=== PATIENT | female | born 2000 ===

== ENCOUNTER 2024-05-02 14:30 | Outpatient (RCR) | payer OTHER, SELFPAY ==
--- NOTE | 2024-01-27 17:44 | PT.OIE ---
Current Diagnoses Pain in unspecified shoulder (01/26/24) Cervicalgia (01/26/24) Other female genital prolapse (01/26/24) Weakness (01/26/24) Visit Care Team Role Provider Type EZ Salmeron Attending Provider Non-Staff Family Provider Primary Care Provider Referring Provider Specialty: Nursing Address: [facility], [facility] [address] , [place], [address] Email: Physical Therapy Initial Evaluation PT-OP-A Visit Information Start: 01/26/24 09:49 Freq: Status: Active Protocol: Document 01/26/24 09:45 [facility] (Rec: 01/26/24 13:34 [facility] [id number]) Out-Patient Physical Therapy Visit Information Visit Information Visit Type Initial Evaluation Visit Start Time 09:45 Visit Stop Time 10:30 Visit Number 1 Evaluation Information Evaluation Date 01/26/24 PT-OP-B Current Condition Start: 01/26/24 09:49 Freq: Status: Active Protocol: Document 01/26/24 09:50 [facility] (Rec: 01/26/24 10:35 [facility] [id number]) Current Condition History of Current Condition Onset Date september 2023 Current Complaints SI, LBP,neck, shoulder pain post along with decreased core strength History of Current Condition pelvic floor PT and joint and neck pain, hip pain and hips hury and she has a diastasis. She delivered her baby vaginally on September 18 2023 She had a fast delivery and was on pitocin and she had a epidural, minor tear on the right tear on the inside wall. She feels pelvic pressure and it is hard for her to fully empty her bladder. She has always had very mobile joints and was told she might have a connective tissue disorder. She reports she is sore all the time and this has worsened since she was and after her vaginal delivery Treatment Goals Patient/Caregiver Goals Goals include being able to fully empty her bladder and improve core strength, decrease complaints of pain PT-OP-C Subjective Start: 01/26/24 09:49 Freq: Status: Active Protocol: Document 01/26/24 13:38 [facility] (Rec: 01/26/24 13:40 [facility] [id number]) OP-PT Pain Assessment Pain Assessment Grid Paper Pain Assessment Grid Completed Yes Location neck and shoulder pain Pain Location Details neck and shoulders Intensity 3 Scale Used Numeric (0 - 10) Description Aching Pain Aggravating Factors ADL's, low back and SI joint pain Intensity 4 Scale Used Numeric (0 - 10) Description Aching,With Movement Description- Other worse if staying in one position or with walking PT-OP-F Manual Assessment Start: 01/26/24 09:49 Freq: Status: Active Protocol: Document 01/27/24 17:24 [facility] (Rec: 01/27/24 17:25 [facility] [id number]) Manual Assessments Joint Mobility Assessment Joint Mobility Assessment SI instability with + ALSR test R>L + march test in standing PT-OP-J Posture/Palpation/Skin Start: 01/26/24 09:49 Freq: Status: Active Protocol: Document 01/26/24 13:40 [facility] (Rec: 01/26/24 13:42 [facility] [id number]) Posture Evaluation Comments Posture Comments pt stands in a increased lumbar lordosis with anterior pelvic tilt and tightness of the lumbar paraspinals Palpation Assessment Location lumbar paraspinals Palpation Findings Soft Tissue Tightness,Spasm, Muscle Guarding Palpation Details right greater than left side paraspinal muscle guarding and tightness B SI joint Palpation Findings Tenderness PT-OP-Q Treatments Start: 01/26/24 09:49 Freq: Status: Active Protocol: Document 01/26/24 13:32 [facility] (Rec: 01/26/24 13:34 [facility] [id number]) Therapeutic Exercises Supine Exercises active hamstring stretch Supine Exercise Name Hooklying active hamstring stretch Side bilateral Reps/Minutes x 10 reps each side hip flexor stretch at edge of the bed Reps/Minutes 1-2 reps holding 1 min Other Exercises quadruped TA Reps/Minutes x 10 reps holding up to 10 sec cat cow Reps/Minutes x 10 reps PT-OP-T Assessment and Plan Start: 01/26/24 09:49 Freq: Status: Active Protocol: Document 01/26/24 09:50 [facility] (Rec: 01/26/24 13:38 [facility] [id number]) Physical Therapy Assessment Rehab Potential Rehabilitation Potential Excellent Evaluation Complexity Number of Personal Factors/Comorbidities 0 Number of Body Systems Impaired 1-2 Clinical Presentation at Evaluation Stable Impairments Impairments Activity Tolerance,Functional Activities,Functional Mobility ,Pain,Posture,Soft Tissue Mobility,Strength,Tone Other Impairments urinary retention Goals 3 Impairment Difficulty with full voiding and Christy feels as if she is retaining urine and is experiencing urinary urgency Short Term Goal (STG) Christy is educated on pelvic floor relaxation and toileting strategies to improve voiding STG Duration 4 weeks Receiving Worker Goal (LTG) Christy is able to feel that she is fully voiding and emptying her bladder and is no longer complaining of urinary urgency LTG Duration 12 weeks 2 Impairment SI joint instability with + ASLR test and + march test Receiving Worker Goal (LTG) Christy is able to stabilize with her core with ASLR without unlocking of her SI joint LTG Duration 12 weeks 1 Impairment Wide spread back and SI pain rated 5-6/10 Short Term Goal (STG) Christy is educated in SI and low back stabilization exercises to help with improve stability to decrease pain STG Duration 4 weeks Receiving Worker Goal (LTG) Christy reports a overall reduction in her back and SI pain with stabilization exercises LTG Duration 12 weeks Assessment Summary Assessment Christy is a 24 year old female who is 4 months with vaginal delivery. She has chief complaints of core weakess and wide spread joint pain. Her pain is across the low back and SI region, shoulder and neck pain. Christy reports she has been told she should have testing done for hypermobility syndrome due to her hypermobility and wide spread pain. Her pain was increased with and delivery. She reports increased pain if staying in one position for long periods of time, walking and trying to exercise. Christy also complains of urinary retention and feeling as if she is not fully emptying her bladder when she voids. She also reports moderate complaints of urinary urgency With exam today Christy presents with SI instability and a increase in lumbar lordosis. She has difficulty bracing with her core to stabilize her pelvis and is weak in her transverse abdominal muscles. Christy presents with tightness of the hamstrings and hip flexors creating increased tension in her low back. A pelvic floor exam will be peformed at her next PT visit looking for both strength as well as tone of her pelvic floor muscles. Christy is a good candidate for PT working on core strengthening Physical Therapy Plan Frequency and Duration Frequency of Treatment 1x/Week Duration of treatment (weeks) 12 Plan of Care Start Date 01/26/24 Plan of Care End Date 04/19/24
--- NOTE | 2024-01-27 17:44 | PT.OPPOC ---
Physical, Occupational & Speech Therapy At [facility] Current Diagnoses Pain in unspecified shoulder (01/26/24) Cervicalgia (01/26/24) Other female genital prolapse (01/26/24) Weakness (01/26/24) Visit Care Team Role Provider Type EZ Salmeron Attending Provider Non-Staff Family Provider Primary Care Provider Referring Provider Specialty: Nursing Address: [facility], [facility] [address], [place], [address] Email: Plan Of Care PT-OP-T Assessment and Plan Start: 01/26/24 09:49 Freq: Status: Active Protocol: Document 01/26/24 09:50 [facility] (Rec: 01/26/24 13:38 [facility] [id number]) Physical Therapy Assessment Rehab Potential Rehabilitation Potential Excellent Evaluation Complexity Number of Personal Factors/Comorbidities 0 Number of Body Systems Impaired 1-2 Clinical Presentation at Evaluation Stable Impairments Impairments Activity Tolerance,Functional Activities,Functional Mobility ,Pain,Posture,Soft Tissue Mobility,Strength,Tone Other Impairments urinary retention Goals 3 Impairment Difficulty with full voiding and Christy feels as if she is retaining urine and is experiencing urinary urgency Short Term Goal (STG) Christy is educated on pelvic floor relaxation and toileting strategies to improve voiding STG Duration 4 weeks Client Consultant Goal (LTG) Christy is able to feel that she is fully voiding and emptying her bladder and is no longer complaining of urinary urgency LTG Duration 12 weeks 2 Impairment SI joint instability with + ASLR test and + march test Care Home Goal (LTG) Christy is able to stabilize with her core with ASLR without unlocking of her SI joint LTG Duration 12 weeks 1 Impairment Wide spread back and SI pain rated 5-6/10 Short Term Goal (STG) Christy is educated in SI and low back stabilization exercises to help with improve stability to decrease pain STG Duration 4 weeks Client Consultant Goal (LTG) Christy reports a overall reduction in her back and SI pain with stabilization exercises LTG Duration 12 weeks Assessment Summary Assessment Christy is a 24 year old female who is 4 months with vaginal delivery. She has chief complaints of core weakness and wide spread joint pain. Her pain is across the low back and SI region, shoulder and neck pain. Christy reports she has been told she should have testing done for hypermobility syndrome due to her hypermobility and wide spread pain. Her pain was increased with and delivery. She reports increased pain if staying in one position for long periods of time, walking and trying to exercise. Christy also complains of urinary retention and feeling as if she is not fully emptying her bladder when she voids. She also reports moderate complaints of urinary urgency With exam today Christy presents with SI instability and a increase in lumbar lordosis. She has difficulty bracing with her core to stabilize her pelvis and is weak in her transverse abdominal muscles. Christy presents with tightness of the hamstrings and hip flexors creating increased tension in her low back. A pelvic floor exam will be performed at her next PT visit looking for both strength as well as tone of her pelvic floor muscles. Christy is a good candidate for PT working on core strengthening Physical Therapy Plan Frequency and Duration Frequency of Treatment 1x/Week Duration of treatment (weeks) 12 Plan of Care Start Date 01/26/24 Plan of Care End Date 04/19/24 Plan of Care Dates Plan of Care Start Date 01/26/24 Plan of Care End Date 04/19/24 Electronically Signed by: Radha Alonso, PT 01/27/24 4624 If you are in agreement with this Plan of Care, please return a signed and dated copy. I have reviewed this Plan of Care and certify that the skilled therapy services above are required to meet the patient?s needs. Physician Signature Date Printed Name and Credentials Clinical Instructor Signature Printed Name and Credentials
--- NOTE | 2024-02-03 17:14 | PT.OTN ---
Current Diagnoses Pain in unspecified shoulder (02/03/24) Cervicalgia (02/03/24) Other female genital prolapse (02/03/24) Weakness (02/03/24) Physical Therapy Treatment Note PT-OP-A Visit Information Start: 01/26/24 09:49 Freq: Status: Active Protocol: Document 02/03/24 10:30 [facility] (Rec: 02/03/24 17:01 [facility] [id number]) Out-Patient Physical Therapy Visit Information Visit Information Visit Type Treatment Note Visit Start Time 10:30 Visit Stop Time 11:15 Visit Number 2 Evaluation Information Evaluation Date 01/26/24 PT-OP-B Current Condition Start: 01/26/24 09:49 Freq: Status: Active Protocol: Document 01/26/24 09:50 [facility] (Rec: 01/26/24 10:35 [facility] [id number]) Current Condition History of Current Condition Onset Date september 2023 Current Complaints SI, LBP,neck, shoulder pain post along with decreased core strength History of Current Condition pelvic floor PT and joint and neck pain, hip pain and hips hury and she has a diastasis. She delivered her baby vaginally on September 18 2023 She had a fast delivery and was on pitocin and she had a epidural, minor tear on the right tear on the inside wall. She feels pelvic pressure and it is hard for her to fully empty her bladder. She has always had very mobile joints and was told she might have a connective tissue disorder. She reports she is sore all the time and this has worsened since she was and after her vaginal delivery Treatment Goals Patient/Caregiver Goals Goals include being able to fully empty her bladder and improve core strength, decrease complaints of pain PT-OP-C Subjective Start: 01/26/24 09:49 Freq: Status: Active Protocol: Document 02/03/24 10:35 [facility] (Rec: 02/03/24 10:45 [facility] [id number]) OP-PT Subjective Patient Comments Patient Comments her 4 month old hit a sleep regression so its been hard doing all her exercises PT-OP-F Manual Assessment Start: 01/26/24 09:49 Freq: Status: Active Protocol: Document 01/27/24 17:24 [facility] (Rec: 01/27/24 17:25 [facility] [id number]) Manual Assessments Joint Mobility Assessment Joint Mobility Assessment SI instability with + ALSR test R>L + september test in standing PT-OP-J Posture/Palpation/Skin Start: 01/26/24 09:49 Freq: Status: Active Protocol: Document 01/26/24 13:40 [facility] (Rec: 01/26/24 13:42 [facility] [id number]) Posture Evaluation Comments Posture Comments pt stands in a increased lumbar lordosis with anterior pelvic tilt and tightness of the lumbar paraspinals Palpation Assessment Location lumbar paraspinals Palpation Findings Soft Tissue Tightness,Spasm, Muscle Guarding Palpation Details right greater than left side paraspinal muscle guarding and tightness B SI joint Palpation Findings Tenderness PT-OP-Q Treatments Start: 01/26/24 09:49 Freq: Status: Active Protocol: Document 02/03/24 10:35 [facility] (Rec: 02/03/24 11:22 [facility] [id number]) Therapeutic Exercises Supine Exercises supine ball squeeze Reps/Minutes 10 reps pelvic floor long holds Reps/Minutes x 10 reps Comments average 22 uv and max 39.7 active hamstring stretch Supine Exercise Name Reviewed hip flexor stretch at edge of the bed Supine Exercise Name Reviewed Manual Therapy Treatment Consent Patient gave verbal consent for manual Yes treatment Manual Techniques manual assessment of pelvic floor strength Comments left lateral wall of the levator ani is guarded and pt has difficulty with full relaxation. She is able to contract the pelvic floor but fatigues quickly with endurance holds PT-OP-T Assessment and Plan Start: 01/26/24 09:49 Freq: Status: Active Protocol: Document 02/03/24 10:35 [facility] (Rec: 02/03/24 11:22 [facility] [id number]) Physical Therapy Assessment Assessment Summary Assessment left sided guarding 1/5 MMT all others 2/5 MMT started EMG biofeedback today and resting tone was elevated at 4 uv. Resting tone did not increase with pelvic floor endurance training but pt fatigues. I also added in ball squeeze to help with SI stabilization. Physical Therapy Plan Frequency and Duration Frequency of Treatment 1x/Week Duration of treatment (weeks) 12 Plan of Care Start Date 01/26/24 Plan of Care End Date 04/19/24 Therapeutic Interventions Therapeutic Interventions Home Exercise Program,Manual Therapy,Neuromuscular Re- education,Patient/Caregiver Education,Self-Care/Home Management,Soft Tissue Mobilization,Therapeutic Exercises Modalities Biofeedback Next Visit Focus/Plan Next Note Type Treatment Note Next Visit Plan review core exercises and progress exercises next visit, begin postural stabilization for Christy
--- NOTE | 2024-02-10 17:31 | PT.OTN ---
Current Diagnoses Pain in unspecified shoulder (02/10/24) Cervicalgia (02/10/24) Other female genital prolapse (02/10/24) Weakness (02/10/24) Physical Therapy Treatment Note PT-OP-A Visit Information Start: 01/26/24 09:49 Freq: Status: Active Protocol: Document 02/10/24 11:20 [facility] (Rec: 02/10/24 12:08 [facility] [id number]) Out-Patient Physical Therapy Visit Information Visit Information Visit Type Treatment Note Visit Start Time 11:20 Visit Stop Time 12:00 Visit Number 3 PT-OP-B Current Condition Start: 01/26/24 09:49 Freq: Status: Active Protocol: Document 01/26/24 09:50 [facility] (Rec: 01/26/24 10:35 [facility] [id number]) Current Condition History of Current Condition Onset Date september 2023 Current Complaints SI, LBP,neck, shoulder pain post along with decreased core strength History of Current Condition pelvic floor PT and joint and neck pain, hip pain and hips hury and she has a diastasis. She delivered her baby vaginally on September 18 2023 She had a fast delivery and was on pitocin and she had a epidural, minor tear on the right tear on the inside wall. She feels pelvic pressure and it is hard for her to fully empty her bladder. She has always had very mobile joints and was told she might have a connective tissue disorder. She reports she is sore all the time and this has worsened since she was and after her vaginal delivery Treatment Goals Patient/Caregiver Goals Goals include being able to fully empty her bladder and improve core strength, decrease complaints of pain PT-OP-C Subjective Start: 01/26/24 09:49 Freq: Status: Active Protocol: Document 02/10/24 11:20 [facility] (Rec: 02/10/24 12:08 [facility] [id number]) OP-PT Subjective Patient Comments Patient Comments was able to do contract and relax of her pelvic floor PT-OP-F Manual Assessment Start: 01/26/24 09:49 Freq: Status: Active Protocol: Document 01/27/24 17:24 [facility] (Rec: 01/27/24 17:25 [facility] [id number]) Manual Assessments Joint Mobility Assessment Joint Mobility Assessment SI instability with + ALSR test R>L + march test in standing PT-OP-J Posture/Palpation/Skin Start: 01/26/24 09:49 Freq: Status: Active Protocol: Document 01/26/24 13:40 [facility] (Rec: 01/26/24 13:42 [facility] [id number]) Posture Evaluation Comments Posture Comments pt stands in a increased lumbar lordosis with anterior pelvic tilt and tightness of the lumbar paraspinals Palpation Assessment Location lumbar paraspinals Palpation Findings Soft Tissue Tightness,Spasm, Muscle Guarding Palpation Details right greater than left side paraspinal muscle guarding and tightness B SI joint Palpation Findings Tenderness PT-OP-Q Treatments Start: 01/26/24 09:49 Freq: Status: Active Protocol: Document 02/10/24 11:20 [facility] (Rec: 02/10/24 12:08 [facility] [id number]) Therapeutic Exercises Supine Exercises supine ball squeeze Reps/Minutes 10 reps pelvic floor long holds Supine Exercise Name able to relax to baseline Reps/Minutes x 10 reps Comments average 22 uv and max 39.7 active hamstring stretch Supine Exercise Name Reviewed hip flexor stretch at edge of the bed Supine Exercise Name Reviewed Sidelying Exercises TA isolation Comments worked on isolation of the TA in a sidelying position Other Exercises taina pose wide hips Reps/Minutes hold 1-2 min quadruped TA Reps/Minutes x 10 reps holding up to 10 sec cat cow Reps/Minutes x 10 reps PT-OP-T Assessment and Plan Start: 01/26/24 09:49 Freq: Status: Active Protocol: Document 02/10/24 11:20 [facility] (Rec: 02/10/24 13:06 [facility] [id number]) Physical Therapy Assessment Assessment Summary Assessment time was spent beginning shoulder stabilization today and Christy is very forward with both of her shoulders. She is hypermobile though and does not feel a pec stretch. She tends to elevate shoulders towards her ears and needs cues to set shoulders down. Physical Therapy Plan Frequency and Duration Frequency of Treatment 1x/Week Duration of treatment (weeks) 12 Plan of Care Start Date 01/26/24 Plan of Care End Date 04/19/24 Therapeutic Interventions Therapeutic Interventions Home Exercise Program,Manual Therapy,Neuromuscular Re- education,Patient/Caregiver Education,Self-Care/Home Management,Soft Tissue Mobilization,Therapeutic Exercises Modalities Biofeedback Next Visit Focus/Plan Next Note Type Treatment Note Next Visit Plan review core exercises and progress exercises next visit, continue with postural stabilization for Christy
--- NOTE | 2024-02-17 16:17 | PT.OTN ---
Current Diagnoses Pain in unspecified shoulder (02/17/24) Cervicalgia (02/17/24) Other female genital prolapse (02/17/24) Weakness (02/17/24) Physical Therapy Treatment Note PT-OP-A Visit Information Start: 01/26/24 09:49 Freq: Status: Active Protocol: Document 02/17/24 10:36 [facility] (Rec: 02/17/24 11:26 [facility] [id number]) Out-Patient Physical Therapy Visit Information Visit Information Visit Type Treatment Note Visit Start Time 10:30 Visit Stop Time 11:15 Visit Number 4 PT-OP-B Current Condition Start: 01/26/24 09:49 Freq: Status: Active Protocol: Document 01/26/24 09:50 [facility] (Rec: 01/26/24 10:35 [facility] [id number]) Current Condition History of Current Condition Onset Date september 2023 Current Complaints SI, LBP,neck, shoulder pain post along with decreased core strength History of Current Condition pelvic floor PT and joint and neck pain, hip pain and hips hury and she has a diastasis. She delivered her baby vaginally on September 18 2023 She had a fast delivery and was on pitocin and she had a epidural, minor tear on the right tear on the inside wall. She feels pelvic pressure and it is hard for her to fully empty her bladder. She has always had very mobile joints and was told she might have a connective tissue disorder. She reports she is sore all the time and this has worsened since she was and after her vaginal delivery Treatment Goals Patient/Caregiver Goals Goals include being able to fully empty her bladder and improve core strength, decrease complaints of pain PT-OP-C Subjective Start: 01/26/24 09:49 Freq: Status: Active Protocol: Document 02/17/24 10:36 [facility] (Rec: 02/17/24 11:26 [facility] [id number]) OP-PT Subjective Patient Comments Patient Comments pt notes she is very tired and very sore emptying a little better now with voiding PT-OP-F Manual Assessment Start: 01/26/24 09:49 Freq: Status: Active Protocol: Document 01/27/24 17:24 [facility] (Rec: 01/27/24 17:25 [facility] [id number]) Manual Assessments Joint Mobility Assessment Joint Mobility Assessment SI instability with + ALSR test R>L + march test in standing PT-OP-J Posture/Palpation/Skin Start: 01/26/24 09:49 Freq: Status: Active Protocol: Document 01/26/24 13:40 [facility] (Rec: 01/26/24 13:42 [facility] [id number]) Posture Evaluation Comments Posture Comments pt stands in a increased lumbar lordosis with anterior pelvic tilt and tightness of the lumbar paraspinals Palpation Assessment Location lumbar paraspinals Palpation Findings Soft Tissue Tightness,Spasm, Muscle Guarding Palpation Details right greater than left side paraspinal muscle guarding and tightness B SI joint Palpation Findings Tenderness PT-OP-Q Treatments Start: 01/26/24 09:49 Freq: Status: Active Protocol: Document 02/17/24 10:36 [facility] (Rec: 02/17/24 11:26 [facility] [id number]) Therapeutic Exercises Supine Exercises hip abduction with theraband Reps/Minutes x 30 reps bent knee fall outs Reps/Minutes x 10 reps supine ball squeeze Reps/Minutes 10 reps Sidelying Exercises clam shells Sidelying Exercise Name hold for home Reps/Minutes x 10 reps each side Manual Therapy Treatment Manual Techniques manual right LE distraction Reps/Duration x 5 reps holding 20 seconds MET right anterior innominant Type right anterior innominant Body Position Hooklying Reps/Duration x 5 reps PT-OP-T Assessment and Plan Start: 01/26/24 09:49 Freq: Status: Active Protocol: Document 02/17/24 10:36 [facility] (Rec: 02/17/24 11:26 [facility] [id number]) Physical Therapy Assessment Goals 3 Impairment Difficulty with full voiding and Christy feels as if she is retaining urine and is experiencing urinary urgency Short Term Goal (STG) Christy is educated on pelvic floor relaxation and toileting strategies to improve voiding STG Duration 4 weeks Senior [employer] Goal (LTG) Christy is able to feel that she is fully voiding and emptying her bladder and is no longer complaining of urinary urgency LTG Duration 12 weeks 2 Impairment SI joint instability with + ASLR test and + september test [facility] Goal (LTG) Christy is able to stabilize with her core with ASLR without unlocking of her SI joint LTG Duration 12 weeks 1 Impairment Wide spread back and SI pain rated 5-6/10 Short Term Goal (STG) Christy is educated in SI and low back stabilization exercises to help with improve stability to decrease pain STG Duration 4 weeks Senior [employer] Developer Goal (LTG) Christy reports a overall reduction in her back and SI pain with stabilization exercises LTG Duration 12 weeks Assessment Summary Assessment time was spent working on stabilization, Christy has difficulty with TA bracing in supine but was able to tolerate bent knee fall outs today. I added in hip abduction with TB for stabilization as well and this exercise felt good to Christy. Physical Therapy Plan Frequency and Duration Frequency of Treatment 1x/Week Duration of treatment (weeks) 12 Plan of Care Start Date 01/26/24 Plan of Care End Date 04/19/24 Therapeutic Interventions Therapeutic Interventions Home Exercise Program,Manual Therapy,Neuromuscular Re- education,Patient/Caregiver Education,Self-Care/Home Management,Soft Tissue Mobilization,Therapeutic Exercises Modalities Biofeedback Next Visit Focus/Plan Next Note Type Treatment Note Next Visit Plan resume pelvic floor exercises next visit and review new exercises added in today
--- NOTE | 2024-03-09 16:50 | PT.OTN ---
Current Diagnoses Pain in unspecified shoulder (03/09/24) Cervicalgia (03/09/24) Other female genital prolapse (03/09/24) Weakness (03/09/24) Physical Therapy Treatment Note PT-OP-A Visit Information Start: 01/26/24 09:49 Freq: Status: Active Protocol: Document 03/09/24 11:15 [facility] (Rec: 03/09/24 16:46 [facility] [id number]) Out-Patient Physical Therapy Visit Information Visit Information Visit Type Treatment Note Visit Start Time 11:15 Visit Stop Time 12:00 Visit Number 5 Evaluation Information Evaluation Date 01/26/24 PT-OP-B Current Condition Start: 01/26/24 09:49 Freq: Status: Active Protocol: Document 01/26/24 09:50 [facility] (Rec: 01/26/24 10:35 [facility] [id number]) Current Condition History of Current Condition Onset Date september 2023 Current Complaints SI, LBP,neck, shoulder pain post along with decreased core strength History of Current Condition pelvic floor PT and joint and neck pain, hip pain and hips hury and she has a diastasis. She delivered her baby vaginally on September 18 2023 She had a fast delivery and was on pitocin and she had a epidural, minor tear on the right tear on the inside wall. She feels pelvic pressure and it is hard for her to fully empty her bladder. She has always had very mobile joints and was told she might have a connective tissue disorder. She reports she is sore all the time and this has worsened since she was and after her vaginal delivery Treatment Goals Patient/Caregiver Goals Goals include being able to fully empty her bladder and improve core strength, decrease complaints of pain PT-OP-C Subjective Start: 01/26/24 09:49 Freq: Status: Active Protocol: Document 03/09/24 11:25 [facility] (Rec: 03/09/24 12:18 [facility] [id number]) OP-PT Subjective Patient Comments Patient Comments pt had a diagnositic appt for danya monk she is feeling like she is emptying all the way now with her bladder She is noting neck tightness and upper back tightness Patient Reported Progress Improving PT-OP-F Manual Assessment Start: 01/26/24 09:49 Freq: Status: Active Protocol: Document 01/27/24 17:24 [facility] (Rec: 01/27/24 17:25 [facility] [id number]) Manual Assessments Joint Mobility Assessment Joint Mobility Assessment SI instability with + ALSR test R>L + september test in standing PT-OP-J Posture/Palpation/Skin Start: 01/26/24 09:49 Freq: Status: Active Protocol: Document 01/26/24 13:40 [facility] (Rec: 01/26/24 13:42 [facility] [id number]) Posture Evaluation Comments Posture Comments pt stands in a increased lumbar lordosis with anterior pelvic tilt and tightness of the lumbar paraspinals Palpation Assessment Location lumbar paraspinals Palpation Findings Soft Tissue Tightness,Spasm, Muscle Guarding Palpation Details right greater than left side paraspinal muscle guarding and tightness B SI joint Palpation Findings Tenderness PT-OP-Q Treatments Start: 01/26/24 09:49 Freq: Status: Active Protocol: Document 03/09/24 11:25 [facility] (Rec: 03/09/24 12:18 [facility] [id number]) Therapeutic Exercises Supine Exercises horizontal abduction Reps/Minutes x 10 reps Prone Exercises thoracic extension Reps/Minutes 10 Sitting Exercises chin tucks Reps/Minutes 10 Standing Exercises shoulder extension Equipment Used level 2 TB Reps/Minutes 2 x 10 Manual Therapy Treatment Soft Tissue Mobilization suboccipital release Comments manual suboccipital release tolerated well PT-OP-T Assessment and Plan Start: 01/26/24 09:49 Freq: Status: Active Protocol: Document 03/09/24 11:25 [facility] (Rec: 03/09/24 12:18 [facility] [id number]) Physical Therapy Assessment Goals 3 Impairment Difficulty with full voiding and Christy feels as if she is retaining urine and is experiencing urinary urgency Short Term Goal (STG) Christy is educated on pelvic floor relaxation and toileting strategies to improve voiding STG Duration 4 weeks Validation Analyst Goal (LTG) Christy is able to feel that she is fully voiding and emptying her bladder and is no longer complaining of urinary urgency this is improved and no longer feeling as if she isn't fully voiding LTG Duration 12 weeks 2 Impairment SI joint instability with + ASLR test and + september test [facility] Goal (LTG) Christy is able to stabilize with her core with ASLR without unlocking of her SI joint LTG Duration 12 weeks 1 Impairment Wide spread back and SI pain rated 5-6/10 Short Term Goal (STG) Christy is educated in SI and low back stabilization exercises to help with improve stability to decrease pain STG Duration 4 weeks Validation Analyst Goal (LTG) Christy reports a overall reduction in her back and SI pain with stabilization exercises pt notes she is a 10/26 today LTG Duration 12 weeks Assessment Summary Assessment time was spent today on cevical stabilization and thoracic stabilization and Christy tolerated this well Physical Therapy Plan Frequency and Duration Frequency of Treatment 1x/Week Duration of treatment (weeks) 12 Plan of Care Start Date 01/26/24 Plan of Care End Date 04/19/24 Therapeutic Interventions Therapeutic Interventions Home Exercise Program,Manual Therapy,Neuromuscular Re- education,Patient/Caregiver Education,Self-Care/Home Management,Soft Tissue Mobilization,Therapeutic Exercises Modalities Biofeedback Next Visit Focus/Plan Next Note Type Treatment Note Next Visit Plan review thoracic and cervical stabilization exercises and resume pelvic floor strenghthening
--- NOTE | 2024-03-23 16:00 | PT.OTN ---
Current Diagnoses Pain in unspecified shoulder (03/23/24) Cervicalgia (03/23/24) Other female genital prolapse (03/23/24) Weakness (03/23/24) Physical Therapy Treatment Note PT-OP-A Visit Information Start: 01/26/24 09:49 Freq: Status: Active Protocol: Document 03/23/24 14:30 [facility] (Rec: 03/23/24 16:17 [facility] [id number]) Out-Patient Physical Therapy Visit Information Visit Information Visit Type Treatment Note Visit Start Time 14:30 Visit Stop Time 15:15 Visit Number 6 PT-OP-B Current Condition Start: 01/26/24 09:49 Freq: Status: Active Protocol: Document 01/26/24 09:50 [facility] (Rec: 01/26/24 10:35 [facility] [id number]) Current Condition History of Current Condition Onset Date september 2023 Current Complaints SI, LBP,neck, shoulder pain post along with decreased core strength History of Current Condition pelvic floor PT and joint and neck pain, hip pain and hips hury and she has a diastasis. She delivered her baby vaginally on September 18 2023 She had a fast delivery and was on pitocin and she had a epidural, minor tear on the right tear on the inside wall. She feels pelvic pressure and it is hard for her to fully empty her bladder. She has always had very mobile joints and was told she might have a connective tissue disorder. She reports she is sore all the time and this has worsened since she was and after her vaginal delivery Treatment Goals Patient/Caregiver Goals Goals include being able to fully empty her bladder and improve core strength, decrease complaints of pain PT-OP-C Subjective Start: 01/26/24 09:49 Freq: Status: Active Protocol: Document 03/23/24 14:30 [facility] (Rec: 03/28/24 08:14 [facility] [id number]) OP-PT Subjective Patient Comments Patient Comments Christy notes she has been experiencing a lot of cervical discomfort PT-OP-F Manual Assessment Start: 01/26/24 09:49 Freq: Status: Active Protocol: Document 01/27/24 17:24 [facility] (Rec: 01/27/24 17:25 [facility] [id number]) Manual Assessments Joint Mobility Assessment Joint Mobility Assessment SI instability with + ALSR test R>L + march test in standing PT-OP-J Posture/Palpation/Skin Start: 01/26/24 09:49 Freq: Status: Active Protocol: Document 01/26/24 13:40 [facility] (Rec: 01/26/24 13:42 [facility] [id number]) Posture Evaluation Comments Posture Comments pt stands in a increased lumbar lordosis with anterior pelvic tilt and tightness of the lumbar paraspinals Palpation Assessment Location lumbar paraspinals Palpation Findings Soft Tissue Tightness,Spasm, Muscle Guarding Palpation Details right greater than left side paraspinal muscle guarding and tightness B SI joint Palpation Findings Tenderness PT-OP-Q Treatments Start: 01/26/24 09:49 Freq: Status: Active Protocol: Document 03/23/24 14:30 [facility] (Rec: 03/28/24 08:14 [facility] [id number]) Therapeutic Exercises Prone Exercises thoracic extension Reps/Minutes 10 Sitting Exercises chin tucks Reps/Minutes 10 Comments we worked on not overcontracting the SCM with this, Manual Therapy Treatment Soft Tissue Mobilization upper trapezius release Mobilization Type Myofascial Release Intensity/Depth Superficial Body Position Hooklying SCM release B Mobilization Type Myofascial Release Intensity/Depth Superficial Body Position Hooklying suboccipital release Comments manual suboccipital release tolerated well Manual Techniques gentle cervical traction Body Position Hooklying Comments good tolerance for cervical traction PT-OP-T Assessment and Plan Start: 01/26/24 09:49 Freq: Status: Active Protocol: Document 03/23/24 14:30 [facility] (Rec: 03/28/24 08:14 [facility] [id number]) Physical Therapy Assessment Assessment Summary Assessment we reviewed chin tucks as Christy was over activating her SCM muscuature and guarding too much, worked on gently tucking the chin, continue working thoracic extension and stabilization Physical Therapy Plan Frequency and Duration Frequency of Treatment 1x/Week Duration of treatment (weeks) 12 Plan of Care Start Date 01/26/24 Plan of Care End Date 04/19/24 Therapeutic Interventions Therapeutic Interventions Home Exercise Program,Manual Therapy,Neuromuscular Re- education,Patient/Caregiver Education,Self-Care/Home Management,Soft Tissue Mobilization,Therapeutic Exercises Modalities Biofeedback Next Visit Focus/Plan Next Note Type Treatment Note Next Visit Plan review thoracic and cervical stabilization exercises and resume pelvic floor strenghthening
--- NOTE | 2024-04-11 11:50 | PT.OTN ---
Current Diagnoses Pain in unspecified shoulder (04/11/24) Cervicalgia (04/11/24) Other female genital prolapse (04/11/24) Weakness (04/11/24) Physical Therapy Treatment Note PT-OP-A Visit Information Start: 01/26/24 09:49 Freq: Status: Active Protocol: Document 04/11/24 09:03 [facility] (Rec: 04/11/24 09:51 [facility] [id number]) Out-Patient Physical Therapy Visit Information Visit Information Visit Type Treatment Note Visit Start Time 09:00 Visit Stop Time 09:45 Visit Number 7 PT-OP-B Current Condition Start: 01/26/24 09:49 Freq: Status: Active Protocol: Document 01/26/24 09:50 [facility] (Rec: 01/26/24 10:35 [facility] [id number]) Current Condition History of Current Condition Onset Date september 2023 Current Complaints SI, LBP,neck, shoulder pain post along with decreased core strength History of Current Condition pelvic floor PT and joint and neck pain, hip pain and hips hury and she has a diastasis. She delivered her baby vaginally on September 18 2023 She had a fast delivery and was on pitocin and she had a epidural, minor tear on the right tear on the inside wall. She feels pelvic pressure and it is hard for her to fully empty her bladder. She has always had very mobile joints and was told she might have a connective tissue disorder. She reports she is sore all the time and this has worsened since she was and after her vaginal delivery Treatment Goals Patient/Caregiver Goals Goals include being able to fully empty her bladder and improve core strength, decrease complaints of pain PT-OP-C Subjective Start: 01/26/24 09:49 Freq: Status: Active Protocol: Document 04/11/24 09:03 [facility] (Rec: 04/11/24 09:51 [facility] [id number]) OP-PT Subjective Patient Comments Patient Comments feeling more neck and back this week a little bit of hard time empting her bladder but will go back to her exercises PT-OP-F Manual Assessment Start: 01/26/24 09:49 Freq: Status: Active Protocol: Document 01/27/24 17:24 [facility] (Rec: 01/27/24 17:25 [facility] [id number]) Manual Assessments Joint Mobility Assessment Joint Mobility Assessment SI instability with + ALSR test R>L + september test in standing PT-OP-J Posture/Palpation/Skin Start: 01/26/24 09:49 Freq: Status: Active Protocol: Document 01/26/24 13:40 [facility] (Rec: 01/26/24 13:42 [facility] [id number]) Posture Evaluation Comments Posture Comments pt stands in a increased lumbar lordosis with anterior pelvic tilt and tightness of the lumbar paraspinals Palpation Assessment Location lumbar paraspinals Palpation Findings Soft Tissue Tightness,Spasm, Muscle Guarding Palpation Details right greater than left side paraspinal muscle guarding and tightness B SI joint Palpation Findings Tenderness PT-OP-Q Treatments Start: 01/26/24 09:49 Freq: Status: Active Protocol: Document 04/11/24 09:03 [facility] (Rec: 04/11/24 09:51 [facility] [id number]) Therapeutic Exercises Prone Exercises thoracic extension Prone Exercise Name with chin tuck Reps/Minutes 10 Manual Therapy Treatment Soft Tissue Mobilization upper trapezius release Mobilization Type Myofascial Release Intensity/Depth Superficial Body Position Hooklying SCM release B Mobilization Type Myofascial Release Intensity/Depth Superficial Body Position Hooklying suboccipital release Comments manual suboccipital release tolerated well Joint Mobilizations thoracic mobilizations Joint T4-T10 Direction PA zaina Grade II Body Position Prone Reps/Duration x 5 min Comments good tolerance and tightness throughout the thoracic spine PT-OP-T Assessment and Plan Start: 01/26/24 09:49 Freq: Status: Active Protocol: Document 04/11/24 09:03 [facility] (Rec: 04/11/24 09:51 [facility] [id number]) Physical Therapy Assessment Goals 3 Impairment Difficulty with full voiding and Christy feels as if she is retaining urine and is experiencing urinary urgency Short Term Goal (STG) Christy is educated on pelvic floor relaxation and toileting strategies to improve voiding STG Duration 4 weeks Pharmacy Student Goal (LTG) Christy is able to feel that she is fully voiding and emptying her bladder and is no longer complaining of urinary urgency this is improved and no longer feeling as if she isn't fully voiding LTG Duration 12 weeks 2 Impairment SI joint instability with + ASLR test and + september test Pharmacy Student Goal (LTG) Christy is able to stabilize with her core with ASLR without unlocking of her SI joint LTG Duration 12 weeks 1 Impairment Wide spread back and SI pain rated 5-6/10 Short Term Goal (STG) Christy is educated in SI and low back stabilization exercises to help with improve stability to decrease pain STG Duration 4 weeks Long-Term Goal (LTG) Christy reports a overall reduction in her back and SI pain with stabilization exercises pt notes she is a 10/26 today LTG Duration 12 weeks Assessment Summary Assessment Overall Christy has noticed a difference with her ability to fully empty her bladder. She can tell if she isn't doing her exercises and she has more difficulty fully voiding. She is still reporting upper back and neck pain. We are working on postural modifications and prone thoracic extensions with chin tucks reviewed today and Christy was instructed in self suboccipital release, right > left sided SCM tightness. She would benefit from continued PT Physical Therapy Plan Frequency and Duration Frequency of Treatment 1x/Week Duration of treatment (weeks) 8 Plan of Care Start Date 04/11/24 Plan of Care End Date 06/06/24 Therapeutic Interventions Therapeutic Interventions Home Exercise Program,Manual Therapy,Neuromuscular Re- education,Patient/Caregiver Education,Self-Care/Home Management,Soft Tissue Mobilization,Therapeutic Exercises Modalities Biofeedback Next Visit Focus/Plan Next Note Type Treatment Note Next Visit Plan review thoracic and cervical stabilization exercises and resume pelvic floor strenghthening
--- NOTE | 2024-04-11 11:51 | PT.OPPOC ---
Physical, Occupational & Speech Therapy At Current Diagnoses Pain in unspecified shoulder (04/11/24) Cervicalgia (04/11/24) Other female genital prolapse (04/11/24) Weakness (04/11/24) Visit Care Team Role Provider Type EZ Salmeron Attending Provider Non-Staff Family Provider Primary Care Provider Referring Provider Specialty: Nursing Address: [facility], [facility] [address], [place], [address] Email: Plan Of Care PT-OP-B Current Condition Start: 01/26/24 09:49 Freq: Status: Active Protocol: Document 01/26/24 09:50 [facility] (Rec: 01/26/24 10:35 [facility] [id number]) Current Condition History of Current Condition Onset Date september 2023 Current Complaints SI, LBP,neck, shoulder pain post along with decreased core strength History of Current Condition pelvic floor PT and joint and neck pain, hip pain and hips hury and she has a diastasis. She delivered her baby vaginally on September 18 2023 She had a fast delivery and was on pitocin and she had a epidural, minor tear on the right tear on the inside wall. She feels pelvic pressure and it is hard for her to fully empty her bladder. She has always had very mobile joints and was told she might have a connective tissue disorder. She reports she is sore all the time and this has worsened since she was and after her vaginal delivery Treatment Goals Patient/Caregiver Goals Goals include being able to fully empty her bladder and improve core strength, decrease complaints of pain PT-OP-T Assessment and Plan Start: 01/26/24 09:49 Freq: Status: Active Protocol: Document 04/11/24 09:03 [facility] (Rec: 04/11/24 09:51 [facility] [id number]) Physical Therapy Assessment Goals 3 Impairment Difficulty with full voiding and Christy feels as if she is retaining urine and is experiencing urinary urgency Short Term Goal (STG) Christy is educated on pelvic floor relaxation and toileting strategies to improve voiding STG Duration 4 weeks Nursing Home Goal (LTG) Christy is able to feel that she is fully voiding and emptying her bladder and is no longer complaining of urinary urgency this is improved and no longer feeling as if she isn't fully voiding LTG Duration 12 weeks 2 Impairment SI joint instability with + ASLR test and + september test Internet Sales Manager Goal (LTG) Christy is able to stabilize with her core with ASLR without unlocking of her SI joint LTG Duration 12 weeks 1 Impairment Wide spread back and SI pain rated 5-6/10 Short Term Goal (STG) Christy is educated in SI and low back stabilization exercises to help with improve stability to decrease pain STG Duration 4 weeks Nursing Home Goal (LTG) Christy reports a overall reduction in her back and SI pain with stabilization exercises pt notes she is a 4/10 today LTG Duration 12 weeks Assessment Summary Assessment Overall Christy has noticed a difference with her ability to fully empty her bladder. She can tell if she isn't doing her exercises and she has more difficulty fully voiding. She is still reporting upper back and neck pain. We are working on postural modifications and prone thoracic extensions with chin tucks reviewed today and Christy was instructed in self suboccipital release, right > left sided SCM tightness. She would benefit from continued PT Physical Therapy Plan Frequency and Duration Frequency of Treatment 1x/Week Duration of treatment (weeks) 8 Plan of Care Start Date 04/11/24 Plan of Care End Date 06/06/24 Therapeutic Interventions Therapeutic Interventions Home Exercise Program,Manual Therapy,Neuromuscular Re- education,Patient/Caregiver Education,Self-Care/Home Management,Soft Tissue Mobilization,Therapeutic Exercises Modalities Biofeedback Next Visit Focus/Plan Next Note Type Treatment Note Next Visit Plan review thoracic and cervical stabilization exercises and resume pelvic floor strengthening Plan of Care Dates Plan of Care Start Date 04/11/24 Plan of Care End Date 06/06/24 Electronically Signed by: Radha Alonso, PT 04/11/24 [id number] If you are in agreement with this Plan of Care, please return a signed and dated copy. I have reviewed this Plan of Care and certify that the skilled therapy services above are required to meet the patient?s needs. Physician Signature Date Printed Name and Credentials Clinical Instructor Signature Printed Name and Credentials
--- NOTE | 2024-04-26 12:38 | PT.OTN ---
Current Diagnoses Pain in unspecified shoulder (04/26/24) Cervicalgia (04/26/24) Other female genital prolapse (04/26/24) Weakness (04/26/24) Physical Therapy Treatment Note PT-OP-A Visit Information Start: 01/26/24 09:49 Freq: Status: Active Protocol: Document 04/26/24 09:50 [facility] (Rec: 04/26/24 09:56 [facility] [id number]) Out-Patient Physical Therapy Visit Information Visit Information Visit Type Treatment Note Visit Start Time 09:50 Visit Stop Time 10:30 Visit Number 8 PT-OP-B Current Condition Start: 01/26/24 09:49 Freq: Status: Active Protocol: Document 01/26/24 09:50 [facility] (Rec: 01/26/24 10:35 [facility] [id number]) Current Condition History of Current Condition Onset Date september 2023 Current Complaints SI, LBP,neck, shoulder pain post along with decreased core strength History of Current Condition pelvic floor PT and joint and neck pain, hip pain and hips hury and she has a diastasis. She delivered her baby vaginally on September 18 2023 She had a fast delivery and was on pitocin and she had a epidural, minor tear on the right tear on the inside wall. She feels pelvic pressure and it is hard for her to fully empty her bladder. She has always had very mobile joints and was told she might have a connective tissue disorder. She reports she is sore all the time and this has worsened since she was and after her vaginal delivery Treatment Goals Patient/Caregiver Goals Goals include being able to fully empty her bladder and improve core strength, decrease complaints of pain PT-OP-C Subjective Start: 01/26/24 09:49 Freq: Status: Active Protocol: Document 04/26/24 09:50 [facility] (Rec: 04/26/24 10:50 [facility] [id number]) OP-PT Subjective Patient Comments Patient Comments Christy reports she is feeling really tight in her mid back and neck today PT-OP-F Manual Assessment Start: 01/26/24 09:49 Freq: Status: Active Protocol: Document 01/27/24 17:24 [facility] (Rec: 01/27/24 17:25 [facility] [id number]) Manual Assessments Joint Mobility Assessment Joint Mobility Assessment SI instability with + ALSR test R>L + september test in standing PT-OP-J Posture/Palpation/Skin Start: 01/26/24 09:49 Freq: Status: Active Protocol: Document 01/26/24 13:40 [facility] (Rec: 01/26/24 13:42 [facility] [id number]) Posture Evaluation Comments Posture Comments pt stands in a increased lumbar lordosis with anterior pelvic tilt and tightness of the lumbar paraspinals Palpation Assessment Location lumbar paraspinals Palpation Findings Soft Tissue Tightness,Spasm, Muscle Guarding Palpation Details right greater than left side paraspinal muscle guarding and tightness B SI joint Palpation Findings Tenderness PT-OP-Q Treatments Start: 01/26/24 09:49 Freq: Status: Active Protocol: Document 04/26/24 09:50 [facility] (Rec: 04/26/24 10:48 [facility] [id number]) Therapeutic Exercises Supine Exercises supine over a small ball in the mid back to open up the chest Reps/Minutes hold 1 min Standing Exercises standing shoulder extension Reps/Minutes 3 x 10 with theraband shoulder rows Equipment Used level 2 theraband Reps/Minutes 3 x 10 reps shoulder extension Side bilateral Reps/Minutes level 2 band 3 x 10 reps Manual Therapy Treatment Soft Tissue Mobilization thoracic paraspinal release Mobilization Type Myofascial Release Intensity/Depth Moderate Manual Techniques 1 Type PA glides for the mid thoracic spine Body Position Prone Comments pt is very hypermobile T4-T10 PT-OP-T Assessment and Plan Start: 01/26/24 09:49 Freq: Status: Active Protocol: Document 04/26/24 09:50 [facility] (Rec: 04/26/24 09:56 [facility] [id number]) Physical Therapy Assessment Goals 3 Impairment Difficulty with full voiding and Christy feels as if she is retaining urine and is experiencing urinary urgency Short Term Goal (STG) Christy is educated on pelvic floor relaxation and toileting strategies to improve voiding STG Duration 4 weeks Mcc Goal (LTG) Christy is able to feel that she is fully voiding and emptying her bladder and is no longer complaining of urinary urgency this is improved and no longer feeling as if she isn't fully voiding LTG Duration 12 weeks 2 Impairment SI joint instability with + ASLR test and + march test Mcc Goal (LTG) Christy is able to stabilize with her core with ASLR without unlocking of her SI joint LTG Duration 12 weeks 1 Impairment Wide spread back and SI pain rated 5-6/10 Short Term Goal (STG) Christy is educated in SI and low back stabilization exercises to help with improve stability to decrease pain STG Duration 4 weeks Machine Accountant Goal (LTG) Christy reports a overall reduction in her back and SI pain with stabilization exercises pt notes she is a 4/10 today LTG Duration 12 weeks Assessment Summary Assessment I worked today on thoracic paraspinal MFR and manual PA glides for thoracic extension. We reviewed postural exercises and added in supine over a small ball as the foam roll wasn't feeling like it was getting to the spots she needed. Christy was given a new band for home for thoracic rows and shoulder extensions Physical Therapy Plan Frequency and Duration Frequency of Treatment 1x/Week Duration of treatment (weeks) 8 Plan of Care Start Date 04/11/24 Plan of Care End Date 06/06/24 Therapeutic Interventions Therapeutic Interventions Home Exercise Program,Manual Therapy,Neuromuscular Re- education,Patient/Caregiver Education,Self-Care/Home Management,Therapeutic Exercises Modalities Biofeedback Next Visit Focus/Plan Next Note Type Treatment Note Next Visit Plan review thoracic and cervical stabilization exercises and resume pelvic floor strengthening as this will be Christy's last PT visit
--- NOTE | 2024-05-02 16:19 | PT.OTN ---
Current Diagnoses Pain in unspecified shoulder (05/02/24) Cervicalgia (05/02/24) Other female genital prolapse (05/02/24) Weakness (05/02/24) Physical Therapy Treatment Note PT-OP-A Visit Information Start: 01/26/24 09:49 Freq: Status: Active Protocol: Document 05/02/24 14:29 [facility] (Rec: 05/02/24 15:21 [facility] [id number]) Out-Patient Physical Therapy Visit Information Visit Information Visit Type Treatment Note Visit Start Time 14:30 Visit Stop Time 15:15 Visit Number 9 PT-OP-B Current Condition Start: 01/26/24 09:49 Freq: Status: Active Protocol: Document 01/26/24 09:50 [facility] (Rec: 01/26/24 10:35 [facility] [id number]) Current Condition History of Current Condition Onset Date september 2023 Current Complaints SI, LBP,neck, shoulder pain post along with decreased core strength History of Current Condition pelvic floor PT and joint and neck pain, hip pain and hips hury and she has a diastasis. She delivered her baby vaginally on September 18 2023 She had a fast delivery and was on pitocin and she had a epidural, minor tear on the right tear on the inside wall. She feels pelvic pressure and it is hard for her to fully empty her bladder. She has always had very mobile joints and was told she might have a connective tissue disorder. She reports she is sore all the time and this has worsened since she was and after her vaginal delivery Treatment Goals Patient/Caregiver Goals Goals include being able to fully empty her bladder and improve core strength, decrease complaints of pain PT-OP-C Subjective Start: 01/26/24 09:49 Freq: Status: Active Protocol: Document 05/02/24 14:29 [facility] (Rec: 05/02/24 15:21 [facility] [id number]) OP-PT Subjective Patient Comments Patient Comments went for a hike with baby on her back instead of the front and felt this was better, she is still feeling the suboccipital region. PT-OP-F Manual Assessment Start: 01/26/24 09:49 Freq: Status: Active Protocol: Document 01/27/24 17:24 [facility] (Rec: 01/27/24 17:25 [facility] [id number]) Manual Assessments Joint Mobility Assessment Joint Mobility Assessment SI instability with + ALSR test R>L + september test in standing PT-OP-J Posture/Palpation/Skin Start: 01/26/24 09:49 Freq: Status: Active Protocol: Document 01/26/24 13:40 [facility] (Rec: 01/26/24 13:42 [facility] [id number]) Posture Evaluation Comments Posture Comments pt stands in a increased lumbar lordosis with anterior pelvic tilt and tightness of the lumbar paraspinals Palpation Assessment Location lumbar paraspinals Palpation Findings Soft Tissue Tightness,Spasm, Muscle Guarding Palpation Details right greater than left side paraspinal muscle guarding and tightness B SI joint Palpation Findings Tenderness PT-OP-Q Treatments Start: 01/26/24 09:49 Freq: Status: Active Protocol: Document 05/02/24 16:12 [facility] (Rec: 05/02/24 16:19 [facility] [id number]) Therapeutic Exercises Supine Exercises isometric holds for sidebending Reps/Minutes x 5 reps each side holding 5 sec each Manual Therapy Treatment Soft Tissue Mobilization SCM release B Mobilization Type Myofascial Release Intensity/Depth Superficial Body Position Hooklying suboccipital release Comments manual suboccipital release tolerated well PT-OP-T Assessment and Plan Start: 01/26/24 09:49 Freq: Status: Active Protocol: Document 05/02/24 16:12 [facility] (Rec: 05/02/24 16:19 [facility] [id number]) Physical Therapy Assessment Goals 3 Impairment Difficulty with full voiding and Christy feels as if she is retaining urine and is experiencing urinary urgency Short Term Goal (STG) Christy is educated on pelvic floor relaxation and toileting strategies to improve voiding STG Duration 4 weeks Penitentiary Goal (LTG) Christy is able to feel that she is fully voiding and emptying her bladder and is no longer complaining of urinary urgency this is improved and no longer feeling as if she isn't fully voiding LTG Duration 12 weeks 2 Impairment SI joint instability with + ASLR test and + september test Biofuels Plant Superintendent Goal (LTG) Christy is able to stabilize with her core with ASLR without unlocking of her SI joint good progress LTG Duration 12 weeks 1 Impairment Wide spread back and SI pain rated 5-6/10 Short Term Goal (STG) Christy is educated in SI and low back stabilization exercises to help with improve stability to decrease pain STG Duration 4 weeks Penitentiary Goal (LTG) Christy reports a overall reduction in her back and SI pain with stabilization exercises pt notes she is a 4/10 today LTG Duration 12 weeks Assessment Summary Assessment Christy was shown self stabilization of the C1/C2 with isometric holds into sidebending B and she did well with this and felt decreased tension left C1. She has been experiencing cervicogenic headaches especially as she has been trying to work on her posture. SHe is working to avoid upper cervical extension as this is a culprit to tighten the suboccpitals. She is tighter on the left side. We also talked today about isometrics in general as maybe being better for her with her hypermobility. This was Christy's last PT visit in PT. She is being worked up for hypermobility syndrome and Elhers Danlos with genetic testing. She reports overall improvement with pelvic floor stability and decreased leakage. She still reports cervical and upper back pain. Christy is at the end of her PT appointments and will be discharged at this time Physical Therapy Plan Discharge Physical Therapy Discharge Reasons No Longer Attending PT
== END 2024-05-09 08:22 | disposition home or self-care (01) ==
LOC: PHYS 14:30
PROVIDERS: Family Provider Nurse Practitioner; PCP Nurse Practitioner; Referring Provider Nurse Practitioner; Visit Provider Nurse Practitioner
DX: N81.89 Other female genital prolapse (principal); M25.519 Pain in unspecified shoulder; M54.2 Cervicalgia; R53.1 Weakness
CPT/HCPCS: 97110; 97140; 97161